=== PATIENT | female | born 1985 | race African-American/Black ===

== ENCOUNTER 2018-11-22 12:31 | Outpatient (CLI) | payer BC ==
--- NOTE | 2018-11-22 14:54 | ULT ---
PELVIC ULTRASOUND: History: Bleeding after intercourse. Fibroid. Comparison: None. Technique: Transabdominal and endovaginal imaging of the pelvis was performed. Ovaries are interrogat ed with grayscale, color flow, doppler imaging with spectral waveform analysis. FINDINGS: Uterus is identified, measuring 6.3 x 5.6 x 10.7 cm. in the lower uterine segment there is a solid ec hotexture mass measuring 1.8 x 2.4 x 2.6 cm. This lesion is submucosal in location. Endometrial diame ter is 0.6 cm. Both ovaries have a normal echotexture. Right ovary measures 1.4 x 1.9 x 3.2 cm. Left ovary measures 2.7 x 3.0 x 3.6 cm. Anechoic focus associated with the left ovary, compatible with a 2.3 x 2.2 x 1.7 cm cyst. Trace amount of free fluid. Ovarian Doppler: Vascular flow to both ovaries. IMPRESSION: 1. Submucosal fibroid in the lower uterine segment. 2. Left ovarian cyst. POS: PPP
== END 2018-11-22 12:32 | disposition home or self-care (01) ==
LOC: BICULT 12:31
PROVIDERS: ATTEND Physician Assistant
DX: D25.0 Submucous leiomyoma of uterus (principal); N93.0 Postcoital and contact bleeding; N83.202 Unspecified ovarian cyst, left side
CPT/HCPCS: 76856